=== PATIENT | female | born 1955 | race African-American/Black ===

== ENCOUNTER → 2017-05-15 | Outpatient (CLI) | payer BC, MEDICARE ==
[2015-04-12 10:50] VITALS: BP 137/71
[~2017-05-15] MED LIST: ASPI-482 PO; ASPI-630 PO; ATORVASTATIN CA80 MG PO; BYSTOLIC10 MG PO; CLON1TAB3 PO; GABA-586 PO; LATA2.5D3 EACHEYE; LEVO750T31 PO; LUBI8CAP4 PO; OLME1TAB21 PO; POLY2500 PO; PROAIR HFA8.5 GM IH
--- NOTE | 2017-05-15 14:48 | RAD ---
DATE: 05/15/2017 EXAM: DIGITAL SCREEN BILAT W/CAD HISTORY: Routine screening COMPARISON: 10/17/2011, 05/09/2016 This study was interpreted with the benefit of Computerized Aided Detection (CAD). The breast parenchyma shows scattered fibroglandular densities. Breast parenchyma level B. FINDINGS: There is asymmetric increased density laterally in the right breast which is unchanged since multiple previous studies. There appearance is presumably related to the given history of previous right breast surgery. No new or enlarging breast densities are seen. Benign type calcifications are present. No suspicious microcalcifications have developed. IMPRESSION: Stable mammograms without evidence of malignancy. BI-RADS CATEGORY: 2 BENIGN FINDING(S) RECOMMENDED FOLLOW-UP: 12M 12 MONTH FOLLOW-UP PQRS compliance statement: Patient information was entered into a reminder system with a target due date for the next mammogram. Mammography is a sensitive method for finding small breast cancers, but it does not detect them all and is not a substitute for careful clinical examination. A negative mammogram does not negate a clinically suspicious finding and should not result in delay in biopsying a clinically suspicious abnormality. "Our facility is accredited by the [employer] Mamm[employer]."
== END | disposition home or self-care (01) ==
LOC: MAMMO 13:46
PROVIDERS: ATTEND Internal Medicine
DX: Z12.31 Encounter for screening mammogram for malignant neoplasm of breast (principal)
CPT/HCPCS: G0202; 77067

== ENCOUNTER → 2017-06-12 | Outpatient (CLI) | payer BC ==
[2015-04-12 10:50] VITALS: BP 137/71
--- NOTE | 2017-06-12 14:59 | RAD ---
Renal ultrasound, 06/12/2017: History: Left flank pain, urinary frequency The right kidney measures 11.9 cm in length as does the left kidney. There is no evidence of hydronephrosis or a renal mass. The renal parenchymal echogenicity is within normal limits. The urinary bladder was not well distended. It demonstrated a prevoid volume of 83 cc. There was no significant residual urine in the bladder following voiding. IMPRESSION: No significant abnormality is detected.
== END | disposition home or self-care (01) ==
LOC: US 09:48
PROVIDERS: ATTEND Internal Medicine
DX: I10 Essential (primary) hypertension (principal); R33.9 Retention of urine, unspecified; R35.0 Frequency of micturition
CPT/HCPCS: 76770

== ENCOUNTER → 2017-08-09 | Outpatient (CLI) | payer BC ==
[2015-04-12 10:50] VITALS: BP 137/71
--- NOTE | 2017-08-09 17:35 | RAD ---
Cervical spine x-rays Indication: Nontraumatic neck pain since June 2017. Pain rated from neck to right shoulder Technique: Multiple views of the cervical spine Comparison: Study from 07/26/2016 Findings: Cervical spine is in normal anatomic alignment. Atlantoaxial joint interval is preserved. No compression deformities. Mild intervertebral disc space narrowing with small anterior osteophytes noted at C5-6, C6-C7. No significant facet arthropathy. Visualized lungs are clear. Impression: Mild degenerative disc disease at C5-C6, C6-C7.
--- NOTE | 2017-08-09 17:40 | RAD ---
Shoulder x-rays Indication: Nontraumatic right shoulder pain since June 2017. Technique: 3 views of the right shoulder Comparison: None Findings: No acute fracture or dislocation. No significant degenerative changes at the acromioclavicular or glenohumeral joints. Right lung is clear. Visualized ribs are within normal limits. Calcified right hilar lymph nodes likely healed granulomatous disease. Impression: No acute findings. No osteoarthritis of the right shoulder joint.
== END | disposition home or self-care (01) ==
LOC: RAD 16:35
PROVIDERS: ATTEND Internal Medicine
DX: M50.322 Other cervical disc degeneration at C5-C6 level (principal); M50.323 Other cervical disc degeneration at C6-C7 level; M25.511 Pain in right shoulder
CPT/HCPCS: 72040; 73030

== ENCOUNTER → 2018-05-22 | Outpatient (CLI) | payer BC ==
[2015-04-12 10:50] VITALS: BP 137/71
[~2018-05-22] MED LIST changes: -CLON1TAB3 PO; +CLON1TAB4 PO
--- NOTE | 2018-05-22 15:30 | RAD ---
DATE: 05/22/2018 EXAM: MAMMO GURU SCREENING BILATERAL HISTORY: Routine screening COMPARISON: 05/15/2017 This study was interpreted with the benefit of Computerized Aided Detection (CAD). Breast Density: SCATTERED The breast parenchyma shows scattered fibroglandular densities. Breast parenchyma level B. FINDINGS: 2-D and 3-D tomosynthesis imaging was performed in CC and MLO projections. No new or enlarging breast densities are seen. Benign type calcifications are present. No suspicious microcalcifications have developed. IMPRESSION: Stable mammograms without evidence of malignancy. BI-RADS CATEGORY: 2 BENIGN FINDING(S) RECOMMENDED FOLLOW-UP: 12M 12 MONTH FOLLOW-UP PQRS compliance statement: Patient information was entered into a reminder system with a target due date for the next mammogram. Mammography is a sensitive method for finding small breast cancers, but it does not detect them all and is not a substitute for careful clinical examination. A negative mammogram does not negate a clinically suspicious finding and should not result in delay in biopsying a clinically suspicious abnormality. "Our facility is accredited by the [employer] Mammography [employer]."
== END | disposition home or self-care (01) ==
LOC: MAMMO 13:06
PROVIDERS: ATTEND Internal Medicine
DX: Z12.31 Encounter for screening mammogram for malignant neoplasm of breast (principal); I11.0 Hypertensive heart disease with heart failure; I50.9 Heart failure, unspecified; Z90.710 Acquired absence of both cervix and uterus
CPT/HCPCS: 77063; 77067

== ENCOUNTER → 2019-07-02 | Outpatient (CLI) | payer BC ==
[2015-04-12 10:50] VITALS: BP 137/71
[~2019-07-02] MED LIST changes: +ALBU2.5V8 IH; -CLON1TAB4 PO; +CLONAZEPAM1 MG PO; -GABA-586 PO; +GABA300C18 PO; -PROAIR HFA8.5 GM IH
--- NOTE | 2019-07-04 09:53 | RAD ---
DATE: 07/02/2019. EXAM: MAMMO GURU SCREENING BILATERAL. HISTORY: Routine mammographic screening. COMPARISON: 05/22/2018. This study was interpreted with the benefit of Computerized Aided Detection (CAD). FINDINGS: Breast Density: SCATTERED The breast parenchyma shows scattered fibroglandular densities. Breast parenchyma level B.. Scattered and coarse calcifications are benign. There are no suspicious masses, microcalcifications or architectural distortion. BI-RADS CATEGORY: 2 BENIGN FINDING(S). RECOMMENDED FOLLOW-UP: 12M 12 MONTH FOLLOW-UP. PQRS compliance statement: Patient information was entered into a reminder system with a target due date 07/02/2020 for the next mammogram. Mammography is a sensitive method for finding small breast cancers, but it does not detect them all and is not a substitute for careful clinical examination. A negative mammogram does not negate a clinically suspicious finding and should not result in delay in biopsying a clinically suspicious abnormality. "Our facility is accredited by the [employer] Mammography [employer]."
== END | disposition home or self-care (01) ==
LOC: MAMMO 13:19
PROVIDERS: ATTEND Family Medicine
DX: Z12.31 Encounter for screening mammogram for malignant neoplasm of breast (principal); N64.89 Other specified disorders of breast
CPT/HCPCS: 77063; 77067

== ENCOUNTER → 2020-06-30 | Outpatient (CLI) | payer BC ==
[2015-04-12 10:50] VITALS: BP 137/71
--- NOTE | 2020-07-01 17:28 | RAD ---
DATE: 06/30/2020 EXAM: MAMMO GURU SCREENING BILATERAL HISTORY: Screening COMPARISON: 07/02/2019, 05/22/2018, 05/15/2017, 05/04/2015 This study was interpreted with the benefit of Computerized Aided Detection (CAD). Breast Density: SCATTERED The breast parenchyma shows scattered fibroglandular densities. Breast parenchyma level B. FINDINGS: There is a 1.4 cm ovoid asymmetry in the outer right breast, 3.7 cm from the nipple at approximately 7:00 on tomosynthesis. No definite correlation on MLO view. No other mass, suspicious consultation, or architectural distortion. IMPRESSION: Asymmetry in the outer right breast at approximately 7:00. Recommend spot compression MLO view and ultrasound further evaluate. BI-RADS CATEGORY: 0 INCOMPLETE: NEEDS ADDITIONAL IMAGING EVALUATION AND/OR PRIOR MAMMOGRAMS FOR COMPARISON. RECOMMENDED FOLLOW-UP: ADD ADDITIONAL IMAGING PQRS compliance statement: Patient information was entered into a reminder system with a target due date for the next mammogram. Mammography is a sensitive method for finding small breast cancers, but it does not detect them all and is not a substitute for careful clinical examination. A negative mammogram does not negate a clinically suspicious finding and should not result in delay in biopsying a clinically suspicious abnormality. "Our facility is accredited by the [employer] Mammography [employer]."
== END ==
LOC: MAMMO 14:44
PROVIDERS: ATTEND Family Medicine
DX: Z12.31 Encounter for screening mammogram for malignant neoplasm of breast (principal)
CPT/HCPCS: 77063; 77067

== ENCOUNTER → 2020-07-20 | Outpatient (CLI) | payer BC ==
[2015-04-12 10:50] VITALS: BP 137/71
--- NOTE | 2020-07-20 12:37 | RAD ---
Examination: 1. Right digital diagnostic mammogram. 2. Targeted right breast ultrasound. INDICATION: 64-year-old woman with family history of breast cancer in 2 sisters of the recalled for additional views of an oval 1.7 cm nodule in the lower outer right breast. COMPARISON: Mammograms of 06/30/2020, 07/02/2019 and 05/22/2018 TECHNIQUE: A full field right ML view was obtained with 2-D and 3-D technique and reviewed with computer-aided detection. Thereafter, targeted ultrasound of the lateral right breast from 6 through 12:00 was performed. FINDINGS: Additional views of the right breast shows scattered fibroglandular densities with no dominant mass, architectural distortion or suspicious calcifications. Targeted ultrasound of the right breast revealed scattered, sonographically benign cysts but no suspicious sonographic findings. It is likely that the finding recalled from screening represents a cyst that has since decreased in size. IMPRESSION: Benign findings on right mammogram and targeted breast ultrasound. No evidence of malignancy. Recommend return to routine screening and maintenance of self breast awareness, in addition to clinical breast exams. Discussed with patient. She is encouraged to promptly report any symptoms to her referring physician. She reports ongoing efforts to undergo genetic testing as a potentially high risk patient based on family history she she plans to follow up with her referring physician about her risk assessment in its implications for supplemental screening and prophylaxis. BI-RADS Category 2 Benign findings Patient entered into a reminder system with targeted due date for next mammogram Electronically signed by: Bebe Mares MD (07/20/2020 12:34 PM) [id number]
== END ==
LOC: MAMMO 10:15
PROVIDERS: ATTEND Family Medicine
DX: R92.8 Other abnormal and inconclusive findings on diagnostic imaging of breast (principal); N60.01 Solitary cyst of right breast
CPT/HCPCS: 76641; 77065

== ENCOUNTER → 2020-07-26 | Outpatient (CLI) | payer BC ==
[2015-04-12 10:50] VITALS: BP 137/71
== END ==
LOC: LAB 13:59
PROVIDERS: ATTEND Internal Medicine Gastroenterology
DX: Z01.812 Encounter for preprocedural laboratory examination (principal); Z20.828 Contact with and (suspected) exposure to other viral communicable diseases
CPT/HCPCS: U0003

== ENCOUNTER → 2020-09-06 | Outpatient (CLI) | payer BC ==
[2015-04-12 10:50] VITALS: BP 137/71
[~2020-09-06] MED LIST changes: +ISOS60TA2 PO; +LOSA-73 PO; +METO50TA4 PO
== END ==
LOC: LAB 13:19
PROVIDERS: ATTEND Internal Medicine Gastroenterology
DX: Z01.812 Encounter for preprocedural laboratory examination (principal); Z12.11 Encounter for screening for malignant neoplasm of colon; Z20.828 Contact with and (suspected) exposure to other viral communicable diseases
CPT/HCPCS: U0003

== ENCOUNTER → 2020-09-09 | Day surgery (SDC) | payer BC ==
[~2020-09-09] MED LIST changes: +BARIUM SULFATE 105% 1,900 ML SUSP PO ONE; +IV RINGERS,LACTATED 1000ML 1,000 ML IV SCH; +PHENYLEPHRINE in 0.9% NACL PF 1 MG/10 ML SYRINGE. IV ONE; +PROPOFOL 10 MG/ML (20ML) VIAL. IV ONE
--- NOTE | 2020-09-09 11:13 | PREOP HP ---
DATE OF SERVICE: DATE OF PROCEDURE: 09/09/2020 REQUESTING PHYSICIAN: Noemi Lawrence MD PRIMARY CARE PHYSICIAN: Noemi Lawrence MD REASON FOR PROCEDURE: Colorectal cancer screening. HISTORY OF PRESENT ILLNESS: This is a 65-year-old female who has had 2 prior incomplete colonoscopies in [address] Ishan Szymanski. She had a barium enema in 2014 that demonstrated diverticulosis. She presents today for colonoscopy for screening. ALLERGIES: LATEX. PAST MEDICAL HISTORY: Diverticulosis. FAMILY MEDICAL HISTORY: Colorectal cancer in her grandfather. MEDICATIONS: MAR reviewed. REVIEW OF SYSTEMS: A 13-point review of systems was done and is positive as per HPI and otherwise negative. PHYSICAL EXAMINATION: GENERAL: She is a well-developed, well-nourished -[place] [employer] female, in no apparent distress. HEENT: Oropharynx is clear. CARDIOVASCULAR: S1, S2. LUNGS: Clear. ABDOMEN: Normoactive bowel sounds, soft, nontender, nondistended. EXTREMITIES: No edema. NEUROLOGIC: Awake, alert and oriented x 3. ASSESSMENT AND PLAN: Colorectal cancer screening. The risks and benefits of the procedure including bleeding, perforation, non-diagnosis and sedation were explained and she has agreed to proceed. Given that she has had 2 failed colonoscopy attempts in the past, we have scheduled her tentatively for a barium enema pending the results of the colonoscopy that is scheduled for today in case that we are not able to complete her procedure. Thank you for allowing me to participate in the care of this patient. ISAAC WALTERS MD DR: JULIEN/lynn JOB#: [id number] / [id number] NOEMI Barraza MD
[2020-09-09 11:17] VITALS: BP 101/50
--- NOTE | 2020-09-09 17:53 | RAD ---
Single contrast barium enema INDICATION: Incomplete colonoscopy due to colonic stricture. TECHNIQUE: General Laborer image was obtained and reviewed. Under fluoroscopic guidance, a balloon catheter was inserted into the rectum, balloon inflated and barium contrast material placed in the large bowel fo r single contrast opacification to the cecum. Multiple spot fluoroscopic images were acquired and ove rhead post contrast images were obtained. 21 images were acquired. Total fluoroscopy time was 1 minut e. FINDINGS: Extensive colonic diverticuli are evident in the sigmoid colon. This remains tortuous and narrow in c aliber than the rest of the large bowel which also showed relatively featureless markings in the bennett sverse and descending colon with relatively few haustral folds. There is a short segment luminal narrowing in the mid transverse colon. No polyps or apple core lesions were identified. The appendix is visualized and is normal. No additional unexpected findings on postevacuation imaging. IMPRESSION: Sigmoid colonic diverticulosis with no filling defects suspicious for colonic polyps or masses. No evidence of colonic malignancy on single contrast barium enema. Electronically signed by: Bebe Mares MD (09/09/2020 5:51 PM) [id number]
== END | disposition home or self-care (01) ==
LOC: ENDOS 09:03
PROVIDERS: ATTEND Internal Medicine Gastroenterology
DX: K59.00 Constipation, unspecified (principal); K56.600 Partial intestinal obstruction, unspecified as to cause; K63.89 Other specified diseases of intestine; K56.699 Other intestinal obstruction unspecified as to partial versus complete obstruction; K57.30 Diverticulosis of large intestine without perforation or abscess without bleeding; I25.10 Atherosclerotic heart disease of native coronary artery without angina pectoris; I10 Essential (primary) hypertension; M19.90 Unspecified osteoarthritis, unspecified site; M79.7 Fibromyalgia; F41.9 Anxiety disorder, unspecified; F32.9 Major depressive disorder, single episode, unspecified; F17.200 Nicotine dependence, unspecified, uncomplicated; E78.00 Pure hypercholesterolemia, unspecified; Z90.49 Acquired absence of other specified parts of digestive tract; J45.909 Unspecified asthma, uncomplicated; Z90.710 Acquired absence of both cervix and uterus; Z98.890 Other specified postprocedural states; Z79.899 Other long term (current) drug therapy; Z72.89 Other problems related to lifestyle; Z80.0 Family history of malignant neoplasm of digestive organs
CPT/HCPCS: 45378; 74270; J2370; J2704